=== PATIENT | male | born 1945 | race Caucasian/White ===

== ENCOUNTER 2017-09-12 17:50 | Inpatient (IN) | payer MEDICARE, OTHER ==
[~2017-09-12] VITALS: Ht 185.4 cm; Wt 88.5 kg
[~2017-09-12 17:50] MED LIST: ALLO100T; ATORVASTATIN CALCIUM 40 MG TAB; GLIM4TAB3; INSU3INS6; LIRA0.6P2; NEED1DIS; OLME1TAB19; SAXA1TBM2
[2017-09-12] MEDS ORDERED: OLME20TA21 PO (18:04)
[2017-09-12] MEDS ORDERED: INSU100V28 SUBCUT (18:04)
[2017-09-12] MEDS ORDERED: GLIP5TAB13 PO (18:04)
[2017-09-12] MEDS ORDERED: ALLO100T PO (18:04)
[2017-09-12] MEDS ORDERED: ATOR10TA PO (18:04)
[2017-09-12 18:44] LABS: CREATININE 5.1 mg/dL (0.6-1.3); POTASSIUM 4.3 mmol/L (3.5-5.1)
[2017-09-12 18:50] LABS: BILIRUBIN,TOTAL 0.5 mg/dL (0.2-1.0)
[2017-09-12 19:00] LABS: BASOPHILS # (AUTO) 0.1 K/uL (0.0-8.0); EOSINOPHILS # (AUTO) 0.3 K/uL (0.0-0.7); HEMATOCRIT 35.1 % (36.7-47.1); HEMOGLOBIN 12.9 g/dL (12.5-16.3); LYMPHOCYTES # (AUTO) 1.4 K/uL (20.0-40.0); LYMPHOCYTES % (AUTO) 24.2 % (20.5-51.5); MEAN CORPUSCULAR HEMOGLOBIN 33.4 uug (23.8-33.4); MEAN CORPUSCULAR HGB CONC 37 g/dL (32.5-36.3); MEAN CORPUSCULAR VOLUME 91.1 fL (73.0-96.2); MONOCYTES # (AUTO) 0.6 K/uL (2.0-10.0); MONOCYTES % (AUTO) 11.4 % (0.0-11.0); NEUTROPHILS # (AUTO) 3.2 K/uL (1.8-8.9); NEUTROPHILS % (AUTO) 57.4 % (38.5-71.5); PLATELET COUNT (AUTO) 204 K/uL (152-348); RED BLOOD CELL COUNT(AUTO) 3.85 MIL/uL (4.06-5.63); WHITE BLOOD COUNT (AUTO) 5.6 K/uL (3.6-10.2)
--- NOTE | 2017-09-12 19:13 | NUR ---
Hands off report given to LAUREN Carbajal accordingly.
--- NOTE | 2017-09-12 19:19 | NUR ---
Received report from LAUREN Couch. Assumed care of pt at this time. Dr. Brown at bedside.
[2017-09-12 19:22] LABS: TOTAL PROTEIN, SERUM 7.1 g/dL (6.4-8.2)
[2017-09-12] MEDS ORDERED: IV NORMAL SALINE 1000 ML BAG IV ONE (19:30)
--- NOTE | 2017-09-12 20:00 | NUR ---
US AT PT BEDSIDE
[2017-09-12] MEDS ORDERED: CHOL100045 PO (20:12)
[2017-09-12] MEDS ORDERED: ATOV1TAB PO (20:12)
--- NOTE | 2017-09-12 21:15 | NUR ---
PT OUT OF ROOM FOR RADIOLOGY
[2017-09-12] MEDS ORDERED: LORAZEPAM 2 MG/1 ML VIAL IV ONE (21:30)
--- NOTE | 2017-09-12 21:37 | NUR ---
Attempted to obtain NM test, pt refusing due to c/o severe claustrophobia. Dr. Brown went to radiology to speak with pt, offered pt ativan to help with the claustrophobia. Pt conts to refuse test.
[2017-09-12] MEDS ORDERED: LORAZEPAM 2 MG/1 ML VIAL ONE (21:47)
--- NOTE | 2017-09-12 21:59 | NUR ---
Pt returned from radiology
--- NOTE | 2017-09-12 23:06 | NUR ---
PT BACK IN ROOM FROM RADIOLOGY
[2017-09-12] MEDS ORDERED: ENOXAPARIN SODIUM 80 MG/0.8 ML DISP.SYRIN SQ ONE (23:45)
[2017-09-13] MEDS ORDERED: ENOXAPARIN SODIUM 80 MG/0.8 ML DISP.SYRIN SQ ONE (00:32)
[2017-09-13 00:43] LABS: *BILIRUBIN,URIN NEGATIVE (NEGATIVE); *BLOOD, URINE 1+ (NEGATIVE); *CLARITY,URINE CLEAR (CLEAR); *COLOR,URINE STRAW (YELLOW); *KETONES,URINE NEGATIVE (NEGATIVE); *PROTEIN,URINE 2+ (NEGATIVE); *UROBILINOGEN,URINE 0.2 E.U./dl (NORMAL); LEUKOCYTE ESTERASE ,URINE NEGATIVE (NEGATIVE); NITRITE, URINE NEGATIVE (NEGATIVE); PH,URINE 5.5 (5.0-8.0)
[2017-09-13 00:51] LABS: UGLUCOSE 2+ (NEGATIVE)
[2017-09-13 00:54] LABS: BACTERIA,URINE NONE SEEN /HPF (NONE SEEN); SQUAMOUS EPITHELIAL CELL,UR FEW /HPF (NONE SEEN); WBC,URINE 0-3 /HPF (0-3)
--- NOTE | 2017-09-13 01:11 | NUR ---
CALLED TO GIVE REPORT. WAS TOLD NURSE IS BUSY W/ ANOTHER PT AND WILL CALL BACK. PT RESTING COMFORTABLY. PENDING UA RESULTS
--- NOTE | 2017-09-13 01:20 | NUR ---
REPORT GIVEN TO RN
--- NOTE | 2017-09-13 01:55 | NUR ---
Admitted patient from ER via [facility]. Routine admission care done. Plan of care initiated.
[2017-09-13 02:06] VITALS: BP 155/78
[2017-09-13] MEDS ORDERED: HYDROCODONE/APAP 5-325MG TABLET PO PRN (03:15)
[2017-09-13] MEDS ORDERED: MORPHINE SULFATE 2 MG/1 ML DISP.SYRIN IV PRN (03:15)
[2017-09-13] MEDS ORDERED: ACETAMINOPHEN 325 MG TABLET PO PRN (03:15)
[2017-09-13] MEDS ORDERED: DEXTROSE 50% 50 ML DISP.SYRIN IV PRN (03:15)
[2017-09-13] MEDS ORDERED: ONDANSETRON 4 MG/2 ML VIAL IV PRN (03:15)
[2017-09-13] MEDS ORDERED: NITROGLYCERIN 0.4 MG/TAB BOTTLE SL PRN (03:15)
[2017-09-13] MEDS: IV NS 1000 ML 1,000 ML IV PRN ×2 (03:54→15:37)
[2017-09-13 05:41] VITALS: BP 163/85
[2017-09-13] MEDS: BLOOD SUGAR DIAGNOSTIC 1 EACH STRIP VI SCH ×3 (05:43→15:57)
--- NOTE | 2017-09-13 06:29 | NUR ---
Patient is asleep, easily arousable to stimuli. All needs attended to. Continue running IVF NS@100mL/hr. Denies pain all night. Bed in low position with call light within reach.
--- NOTE | 2017-09-13 07:30 | NUR ---
Patient is asleep, easily arousable to stimuli. All needs attended to. Denies pain . Bed in low position with call light within reach.
[2017-09-13] MEDS: INSULIN REGULAR, HUMAN 300 UNIT/3 ML VIAL SQ PRN ×3 (08:35→16:16)
[2017-09-13] MEDS ORDERED: ASPIRIN EC 81 MG TABLET.DR PO SCH ×2 (09:00)
[2017-09-13] MEDS ORDERED: ALLO300T2 PO (09:39)
[2017-09-13] MEDS ORDERED: GLIM2TAB2 PO (09:39)
[2017-09-13] MEDS ORDERED: BENICAR HCT PO (09:39)
[2017-09-13] MEDS ORDERED: ATOR20TA PO (09:39)
[2017-09-13] MEDS ORDERED: INSU100I26 SQ (09:49)
[2017-09-13] MEDS ORDERED: SAXA5TAB PO (09:49)
[2017-09-13 11:06] VITALS: BP 180/91
[2017-09-13] MEDS ORDERED: METOPROLOL TARTRATE 25 MG TABLET PO SCH (11:45)
[2017-09-13] MEDS ORDERED: AMLODIPINE 5 MG TABLET PO SCH (11:45)
[2017-09-13] MEDS ORDERED: hydrALAZINE HCL 25 MG TABLET PO PRN (11:45)
[2017-09-13 11:47] VITALS: BP 180/91
[2017-09-13 14:31] LABS: *BILIRUBIN,URIN NEGATIVE (NEGATIVE); *BLOOD, URINE 2+ (NEGATIVE); *CLARITY,URINE CLEAR (CLEAR); *COLOR,URINE YELLOW (YELLOW); *KETONES,URINE NEGATIVE (NEGATIVE); *PROTEIN,URINE 2+ (NEGATIVE); *UROBILINOGEN,URINE 0.2 E.U./dl (NORMAL); LEUKOCYTE ESTERASE ,URINE NEGATIVE (NEGATIVE); NITRITE, URINE NEGATIVE (NEGATIVE); PH,URINE 5.5 (5.0-8.0)
[2017-09-13 14:34] LABS: UGLUCOSE 2+ (NEGATIVE)
[2017-09-13 14:45] LABS: BACTERIA,URINE NONE SEEN /HPF (NONE SEEN); SQUAMOUS EPITHELIAL CELL,UR FEW /HPF (NONE SEEN); WBC,URINE 0-3 /HPF (0-3)
[2017-09-13 14:57] LABS: *CREATININE,URINE 37.2 mg/dL (30-125); *URINE TOTAL PROTEIN RANDOM 133.9 mg/dL (<150/24HR)
[2017-09-13 15:40] VITALS: BP 144/74
[2017-09-13 16:24] LABS: CREATININE 3.8 mg/dL (0.6-1.3); POTASSIUM 4.8 mmol/L (3.5-5.1)
[2017-09-13] MEDS ORDERED: METO25TA6 PO (18:16)
[2017-09-13] MEDS ORDERED: AMLO5TAB2 PO (18:16)
[2017-09-13 18:43] VITALS: BP 142/70
[2017-09-13] MEDS ORDERED: METOPROLOL TARTRATE 25 MG TABLET PO ONE (18:45)
--- NOTE | 2017-09-13 18:47 | NUR ---
D/C ORDERS RECEIVED NOTED AND CARRIED OUT,D/C HEPLOCK PER MD ORDERS,D/C INSTRUCTIONS GIVEN TO THE PT ,PT VERBALIZED UNDERSTANDING ALL THE INSTRUCTIONS.PT LEFT THE FACILITY VIA PRIVATE CAR IN STABLE CONDITION.
[2017-09-13] MEDS ORDERED: ATORVASTATIN 10 MG TABLET PO SCH (21:00)
[2017-09-13] MEDS ORDERED: ATORVASTATIN 20 MG TABLET PO SCH (21:00)
== END 2017-09-13 18:50 | disposition home or self-care (01) | DRG 205 ==
LOC: ER 17:53 → TELE 09-13 01:26
DX: M94.0 Chondrocostal junction syndrome [Tietze] (principal); N17.0 Acute kidney failure with tubular necrosis; E44.0 Moderate protein-calorie malnutrition; E66.9 Obesity, unspecified; Z85.820 Personal history of malignant melanoma of skin; Z91.19 Patient's noncompliance with other medical treatment and regimen; N18.9 Chronic kidney disease, unspecified; Z88.0 Allergy status to penicillin; Z88.2 Allergy status to sulfonamides; Z68.25 Body mass index [BMI] 25.0-25.9, adult; K80.20 Calculus of gallbladder without cholecystitis without obstruction; E10.22 Type 1 diabetes mellitus with diabetic chronic kidney disease; E10.65 Type 1 diabetes mellitus with hyperglycemia; Z79.4 Long term (current) use of insulin; M10.9 Gout, unspecified; I12.9 Hypertensive chronic kidney disease with stage 1 through stage 4 chronic kidney disease, or unspecified chronic kidney disease
CPT/HCPCS: 36415; 70030-TC; 71010; 71250; 76770; 84156; 84300; 85025; 85610; 93005; 93307; A4663; J1650; J1815; J2060; J7030